=== PATIENT | female | born 1980 | race Caucasian/White ===

== ENCOUNTER 2017-02-25 22:44 | Emergency (ER) | payer MEDICAID ==
[2017-02-25 22:58] VITALS: TEMP 98.4
[2017-02-25] MEDS ORDERED: IPRATROPIUM/ALBUTEROL 3 ML DEYVIAL IH ONE (23:32)
[2017-02-25 23:52] VITALS: RESP 16
[2017-02-26] MEDS ORDERED: ALBUTEROL INH PREPACK MDI TAKEHOME ONE (00:22)
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
[2017-02-26 00:55] VITALS: BP 108/55; PULSE 59; O2SAT 97
== END 2017-02-26 00:49 | disposition home or self-care (01) ==
LOC: CED 22:44
DX: S20.212A Contusion of left front wall of thorax, initial encounter (principal); J45.901 Unspecified asthma with (acute) exacerbation; J30.1 Allergic rhinitis due to pollen; V49.49XA Driver injured in collision with other motor vehicles in traffic accident, initial encounter
CPT/HCPCS: 71020-PO